=== PATIENT | male | born 1945 | race Hispanic/Latino ===

== ENCOUNTER 2017-04-16 18:32 | Emergency (ER) | payer MEDICARE ==
[~2017-04-16] VITALS: Ht 170.2 cm; Wt 86.4 kg
[~2017-04-16 18:32] MED LIST: ANUSOL HC25 MG RE; PRILOSEC40 MG PO; TOPROL XL25 MG PO; [UNRECOGNIZED DRUG - REMARK]
[2017-04-16] MEDS ORDERED: METO50TA52 PO (18:50)
[2017-04-16] MEDS ORDERED: HYDROCO/APAP1 TA9 PO (18:51)
[2017-04-16] MEDS ORDERED: COLACE SYR100 MG/UDC PO (18:54)
[2017-04-16 20:42] LABS: HEMATOCRIT 43.8 % (39.0-50.0); HEMOGLOBIN 15.1 g/dl (14.0-18.0); IMMATURE GRANULOCYTES 0.3 % (0.0-1.0); MEAN CELL VOLUME 89.9 fL CALC (80.0-100.0); MEAN CORPUSCULAR HGB CONC 34.5 g/L CALC (32.0-36.0); NEUT# 8.52 thou/uL (1.82-7.42); RED BLOOD COUNT 4.87 mill/uL (4.70-6.10); RED CELL DISTRI WIDTH 12.2 % (11.5-15.5)
[2017-04-16 20:55] LABS: ALBUMIN 5.2 g/dL (3.2-5.0); ALKALINE PHOSPHATASE 83 u/l (38-126); ANION GAP 21 (6-22 (CALC)); BILIRUBIN, TOTAL 1.3 mg/dL (0.0-1.4); BUN 13 mg/dL (8-23); BUN/CREATININE RATIO 16 (12-20 (CALC)); CALCIUM 9.6 mg/dL (8.4-10.2); CARBON DIOXIDE 24 mmol/l (22-30); CHLORIDE 98 mmol/l (95-108); CREATININE 0.8 mg/dL (0.7-1.3); GFR > 60 ML/MIN (>=60 (CALC)); GFR FOR AFR.AMER. > 60 ML/MIN (>=60 (CALC)); GLUCOSE 140 mg/dL (82-115); SGOT/AST 35 u/l (19-48); SGPT/ALT 62 u/l (11-66); SODIUM 138 mmol/l (137-146); TOTAL PROTEIN 9.2 g/dL (6.3-8.2)
[2017-04-16 21:30] VITALS: BP 135/63
== END 2017-04-16 21:37 | disposition home or self-care (01) ==
LOC: ED 18:32
PROVIDERS: Emergency Medicine
DX: K59.00 Constipation, unspecified (principal); I10 Essential (primary) hypertension; K21.9 Gastro-esophageal reflux disease without esophagitis; Z98.890 Other specified postprocedural states

== ENCOUNTER 2019-06-06 11:04 | Day surgery (SDC) | payer MEDICARE ==
[~2019-06-06] VITALS: Ht 170.2 cm; Wt 88.5 kg
[2019-06-06] VITALS (8 sets, daily range): BP systolic 126–160; BP diastolic 53–76
[~2019-06-06 11:04] MED LIST changes: +COLACE SYR100 MG/UDC PO; +HYDROCO/APAP1 TA9 PO; +METO50TA52 PO; +OMEPRAZOLE DR40 MG PO
--- NOTE | 2019-06-06 14:52 | NUR ---
PT TRANSPORTED TO [facility] VIA STRETCHER ACCOMPIANED BY OR NURSES. PT SLIDE FROM STRETCHER TO BED. VS DONE. PT DROWSY. CITIZEN OF [place] SPEAKING BUT SPEAKS SOME [place]. PT A/O X3. RESP EVEN AND UNLABORED. LUNG SOUNDS CLEAR. O2 @2L AT BEDSIDE. BOWEL SOUNDS HYPOACTIVE. STRONG RADIAL AND PEDAL PULSES. #20 LAC D5 LR @75. SITE APPEARS HEALTHY. PT HAS 4 DRESSINGS TO RT ABDOMEN. ABDOMEN DISTENDED AND FIRM. PT C/O ACHING ABDOMINAL PAIN 8 OUT OF 10 ON PAIN SCALE. MEDICATED W/ PERCOCET 5/325 PO. REPOSITIONED FOR COMFORT. PT DENIES ANY FURTHER NEEDS. POC DISCUSSED. INCENTIVE SPIROMETER DISCUSSED W/ PT. SAFETY PRECAUTIONS IN PLACE. CALL LIGHT IN REACH. WILL CONTINUE TO MONITOR.
--- NOTE | 2019-06-06 17:39 | NUR ---
PT MEDICATED W/ 1 MG DILAUDID NIV FOR ABDOMINAL PAIN; 8 OUT OF 10 ON PAIN SCALE. RELAXATION TECHNIQUES IN PLACE. DISCUSSED THE IMPORTANCE OF AMBULATION AND MOVEMENT AFTER POST OP SURGERY. ALSO DISCUSSED PAIN MEDICATION ADMINISTRATIONS W/ PT. PT STATES UNDERSTANDING. CALL LIGHT IN REACH. SPOUSE AT BEDSIDE. WILL CONTINUE TO MONITOR.
--- NOTE | 2019-06-06 20:15 | NUR ---
PT AWAKE RESTING IN BED WITH AT BEDSIDE. PT IS ALERT AND ORIENTED X3. RESP EVEN AND UNLABORED. PT DOES SPEAK [place]. LUNGS CLEAR BILAT.ABD SOFT AND NONDISTENDED WITH BOWEL SOUNDS PRESENT IN ALL FOUR QUADS. 4 LAP ABD DRESSINGS INTACT WITH BLOODY DRAINAGE NOTED ON UMBILICAL DRESSING. ABD TENDERNESS NOTED ON RT SIDE OF ABD. NO LOWER EXT EDEMA NOTED. PEDAL PULSES PALPATED BILAT. SCD'S ON. IV SITE PATENT IN LAC D5 LR AT 75CC/HR. PT ENCOURAGED TO USE INSENTIVE SPIROMETRY Q 1HR WHILE AWAKE, 10X/HR. PT ATE 100% OF HIS DINNER TRAY. PT IS AFEBRILE. WILL CONTINUE TO CLOSELY MONITOR. FREQUENT ROUNDS MADE. CALL PA WITHIN REACH.
--- NOTE | 2019-06-06 21:45 | NUR ---
PT AWAKE RESTING IN BED. PT ENCOURAGED TO GET OOB AND SIT IN CHAIR. PT STATES HE IS HAVING DISCOMFORT AND DOES NOT WANT TO. PT REFUSES. MEDICATED WITH OXYCODONE 5/325MG P.O FOR ABD PAIN RATED AN 8 ON PAIN SCALE. ABD ASSESSMENT UNCHANGED. PT DENIES ANY NAUSEA OR VOMITING. IV SITE PATENT. PT ENCOURAGED TO USE INSENTIVE SPIROMETER. MUCH ENCOURAGEMENT IS NEEDED. AT BEDSIDE. WILL CONTINUE TO CLOSELY MONITOR. FREQUENT ROUNDS MADE. CALL PA WITHIN REACH.
[2019-06-07 00:06] VITALS: BP 159/70
--- NOTE | 2019-06-07 00:15 | NUR ---
PT AWAKE RESTING IN BED. RESP EVEN AND UNLABORED. NO DISTRESS NOTED. IV SITE PATENT. VOIDING CLEAR YELLOW URINE WITHOUT ANY DIFFICULTY. AT BEDSIDE. PT DID STATE PAIN PILL DID HELP HIS DISCOMFORT. SCD'S ON. FREQUENT ROUNDS MADE. CALL PA WITHIN REACH.
--- NOTE | 2019-06-07 04:17 | NUR ---
RESTING IN BED WITH EYES CLOSED. RESP EVEN AND UNLABORED. ASSESSMENT UNCHANGED. NO DISTRESS NOTED. IV SITE PATENT. SLEEPING ON COUCH IN ROOM. FREQUENT ROUNDS MADE. CALL PA WITHIN REACH.
[2019-06-07 04:50] VITALS: BP 154/59
--- NOTE | 2019-06-07 05:07 | NUR ---
PT AWAKE RESTING IN BED. MEDICATED WITH OXYCODONE 5MG P.O FOR ABD DISCOMFORT. ABD INC REMAIN UNCHANGED. ASSESSMENT UNCHANGED. IV SITE PATENT. FREQUENT ROUNDS MADE. CALL PA WITHIN REACH.
[2019-06-07 08:10] VITALS: BP 155/72
--- NOTE | 2019-06-07 08:10 | NUR ---
ASSESSMENT IS COMPLETED: IV SITE IS FREE FROM REDNESS OR EDEMA. HR IS REG,PULSES ARE STRONG X4, ABD IS SOFT WITH ACTIVE BS. BREATH SOUNDS ARE CLEAR AND DIMINISHED . ENCOURAGED TO TAKE DEEP BREATHS AND USE THE ISP. DRESSING ON ABD IS CDI WITH SMALL DRAINAGE NOTED ON UMBILICAL DRESSING. CONTINUE TO OBSERVE AND MONITOR.
[2019-06-07 09:19] VITALS: BP 155/72
--- NOTE | 2019-06-07 09:30 | NUR ---
CALLING DR. FREDERICK RE: PT DISCHARGE. FOLLOW UP IN 1 WEEK
--- NOTE | 2019-06-07 09:40 | NUR ---
IV SITE DISCONTINUED CATHETER INTACT. DRESSING CHANGED ON UMBILICAL WITH DRAINAGE ONLY ON DRESSING. BOB INTACT. DISCHARGE INSTRUCTIONS GIVEN AND VERBALIZED UNDERSTANDING. WAS A LITTLE UPSET WANTED TO GO HOME THIS AM. EXPLAINED RE: ASSESSMENT AND MED PASS. FAMILY IN THE ROOM
--- NOTE | 2019-06-07 10:00 | NUR ---
Discharge instructions given. Patient verbalizes understanding of same. Discharged in stable condition via Wheelchair to Home with family. All belongings sent with pt.
== END 2019-06-07 09:50 | disposition home or self-care (01) ==
LOC: ORM 11:04 → MS2 15:00 → ORM 06-07 09:50
PROVIDERS: ATTEND Surgery
PROC: 0FT44ZZ Resection of Gallbladder, Percutaneous Endoscopic Approach (ICD-10-PCS; principal; 2019-06-06)
PROC: BF001ZZ Plain Radiography of Bile Ducts using Low Osmolar Contrast (ICD-10-PCS; 2019-06-06)
PROC: 3E02340 Introduction of Influenza Vaccine into Muscle, Percutaneous Approach (ICD-10-PCS; 2019-06-07)
DX: K80.12 Calculus of gallbladder with acute and chronic cholecystitis without obstruction (principal); I10 Essential (primary) hypertension; Z87.891 Personal history of nicotine dependence; Z23 Encounter for immunization
CPT/HCPCS: J0131; J1100; J2710; Q9967

== ENCOUNTER 2019-06-08 10:51 | Emergency (ER) | payer MEDICARE ==
[~2019-06-08] VITALS: Ht 170.2 cm; Wt 85.0 kg
[2019-06-08 11:27] LABS: HEMATOCRIT 43.5 % (39.0-50.0); HEMOGLOBIN 14.3 g/dl (14.0-18.0); IMMATURE GRANULOCYTES 1.1 % (0.0-5.0); MEAN CELL VOLUME 94.4 fL CALC (80.0-100.0); MEAN CORPUSCULAR HGB CONC 32.9 g/L CALC (32.0-36.0); PLATELET COUNT 168 thou/uL (130-400); RED BLOOD COUNT 4.61 mill/uL (4.70-6.10); RED CELL DISTRI WIDTH 12.8 % (11.5-15.5)
[2019-06-08 11:39] LABS: ACT PARTIAL THROMBO TIME 30.5 SECONDS (20.0-32.5); ALBUMIN 4.2 g/dL (3.2-5.0); CREATININE 1.4 mg/dL (0.7-1.3); INTERNATIONAL NORMALIZED RATIO 1.3 RATIO (0.7-1.3); MAGNESIUM 1.5 mg/dL (1.6-2.3); MANUAL DIFFERENTIAL YES; POTASSIUM 3.7 mmol/l (3.5-5.1); PROTHROMBIN TIME 13.7 SECONDS (9.0-12.5); TOTAL PROTEIN 7.5 g/dL (6.3-8.2)
[2019-06-08 11:46] LABS: BILIRUBIN, TOTAL 4.3 mg/dL (0.0-1.4)
[2019-06-08 11:54] LABS: BAND 23 % (0-8)
[2019-06-08 12:41] VITALS: BP 135/84
[2019-06-08 13:05] LABS: URINE BILIRUBIN - DIPSTICK NEGATIVE (NEGATIVE); URINE BLOOD DIPSTICK MODERATE (NEGATIVE); URINE COLOR YELLOW; URINE GLUCOSE - DIPSTICK NEGATIVE (NEGATIVE); URINE KETONE NEGATIVE (NEGATIVE); URINE LEUK ESTERASE NEGATIVE (NEGATIVE); URINE NITRITE - DIPSTICK NEGATIVE (Negative); URINE PH 5.5 (4.5-8.0); URINE PROTEIN - DIPSTICK 100 mg/dL (NEG-TRACE); URINE SPECIFIC GRAVITY <=1.005; URINE UROBILINOGEN - DIPSTICK 0.2 E.U./dL (0.2)
[2019-06-08 13:23] LABS: URINE SQUAMOUS EPITHELIAL CELL FEW EPI/hpf (0-FEW)
== END 2019-06-08 12:41 ==
LOC: ED 10:51
DX: K92.2 Gastrointestinal hemorrhage, unspecified (principal); J18.9 Pneumonia, unspecified organism; I10 Essential (primary) hypertension; Z98.890 Other specified postprocedural states; Z90.49 Acquired absence of other specified parts of digestive tract; R94.31 Abnormal electrocardiogram [ECG] [EKG]; R06.02 Shortness of breath; R94.8 Abnormal results of function studies of other organs and systems
CPT/HCPCS: Q9967; S0164